=== PATIENT | male | born 2000 | race Caucasian/White ===

== ENCOUNTER 2020-11-01 18:48 | Emergency (ER) | payer SELFPAY ==
--- NOTE | 2020-11-01 18:50 | XR_ITS ---
WS: [id number] Exam: XR hand RT min 3V* [id number] Date/Time of Exam: 11/01/2020 6:57 PM Reason For Exam: pain There is an impacted fracture of the distal fifth metacarpal with volar rotation of the metacarpal he ad. No other fractures. No dislocation. Soft tissue swelling at the fracture site. XR/XR hand RT min 3V* [id number] IMPRESSION: 1. Fracture of the distal fifth metacarpal with volar rotation of the metacarpa l head.
[2020-11-01 18:58] VITALS: BP 104/68; PULSE 102; RESP 16; TEMP 36.8; O2SAT 96; BMI 19.2
[2020-11-01 19:04] VITALS: BP 124/73; PULSE 101; RESP 16; O2SAT 97
--- NOTE | 2020-11-01 19:17 | ED_ITS ---
HPI - Extremity Problem General: Chief complaint: Extremity Injury, Upper Stated complaint: Rt hand pain Time Seen by Provider: 11/01/20 19:07 History of Present Illness: HPI Narrative: Patient states he had his right hand in a car door couple days ago it hurts. Complaint: extremity pain Onset (ago): day(s) Pain Consistency: constant Location: right and upper extremity Quality: aching Radiation: none Relieving factors: immobilization Exacerbating factors: range of motion Associated symptoms: Reports no associated symptoms; Deny fever(s) Review of Systems Const: Denies: fever(s) or chills Musc: Reports: extremity pain (Right hand) and joint pain Psych: Denies: anxiety or depression Physical Exam Const: COMMON NORMALS: no acute distress Extremity: RIGHT UPPER EXTREMITY: Yes hand & digits (Swelling tenderness to the right distal aspect fifth metacarpal. Has bruis) Psych: COMMON NORMALS: mental status grossly normal Course Vital Signs: Vital signs: Vital Signs Temperature 98.3 F 11/01/20 18:58 Pulse Rate 101 H 11/01/20 19:04 Respiratory Rate 16 11/01/20 19:04 Blood Pressure 124/73 11/01/20 19:04 Pulse Oximetry 97 11/01/20 19:04 Discharge Plan Discharge Patient Disposition: Home Clinical Impression: Finger fracture, right Qualifiers: Encounter type: initial encounter Finger: little finger Fracture type: closed Phalanx: distal Fracture alignment: displaced Qualified Code(s): S62.636A - Displaced fracture of distal phalanx of right little finger, initial encounter for closed fracture Condition: Stable Prescriptions: New tramadol 50 mg tablet 50 mg PO TID PRN (Reason: pain) Qty: 10 RF: 0 Discharge Orders: Discharge ED (Routine); Ordered 11/01/20 Ordered By: Rashi Rice Discharge Diet: Usual diet Discharge Activity: Increase activity as tolerated Patient Instructions: Boxer Fracture (ED) Activity Restrictions/Additional Instructions: Follow-up with medical provider as directed. Take medications as prescribed. Return to the ER or your medical provider if condition worsens. Please read and understand discharge instructions. If any questions ask please. . Hospital contact you with appointment for orthopedic clinic. Coding Level of Care Code ED Heading Up Machine Operator for Lexi Bowers
--- NOTE | 2020-11-02 09:30 | DCPLANNER ---
manager animation had message to schedule a follow up appointment for patient with ortho. manager animation called the ortho clinic, spoke with Kristy, gave clinic patients information. manager animation was told that patients information would be printed and reviewed. Clinic will call patient with appointment information.
--- NOTE | 2020-11-14 10:23 | DCPLANNER ---
manager subway called ortho to confirm that a follow up appointment had been scheduled for patient. manager subway spoke with Ro, was told that patient went somewhere else to be seen.
== END 2020-11-01 19:45 | disposition home or self-care (01) ==
PROVIDERS: Emergency Provider Nurse Practitioner Family
DX: S62.636A Displaced fracture of distal phalanx of right little finger, initial encounter for closed fracture (principal); W23.0XXA Caught, crushed, jammed, or pinched between moving objects, initial encounter
CPT/HCPCS: 12345; 29125; 73130; 99281; 99283

== ENCOUNTER 2025-08-03 21:14 | Emergency (ER) | payer SELFPAY ==
[2025-08-03] VITALS (8 sets, daily range): BP systolic 109–137; BP diastolic 66–82; PULSE 44–63; RESP 14–18; TEMP 36.3; O2SAT 100
[2025-08-03] MEDS: metoclopramide 5 mg/mL SDV 2 mL 10 MG IVP (21:59)
[2025-08-03 22:13] LABS: Hematocrit 42.8 % (37-53); Hemoglobin 14.10 g/dL (11.27-16.99); Mean Corpuscular HGB Conc 32.9 g/dL (30-55); Mean Corpuscular Hemoglobin 27.9 pg (27-33); Mean Corpuscular Volume 84.8 fl (82-101); Nucleated Red Blood Cells % 0 %; Platelet Count 210 10^3/cmm (157-399); Red Blood Count 5.05 10^6/uL (3.85-5.65); White Blood Count 6.78 10^3/uL (3.29-11.43)
--- NOTE | 2025-08-03 22:19 | ED_ITS ---
HPI - Nausea/Vomiting/Diarrhea 2 General: Chief complaint: Nausea/Vomiting/Diarrhea Stated complaint: had a tooth pulled, has dry heaves, lot of pain Time Seen by Provider: 08/03/25 21:24 Source: patient Mode of arrival: ambulatory Limitations: no limitations History of Present Illness: Patient is a 25-year-old male who presents emergency department with nausea vomiting beginning today. Yesterday he had right lower molar pulled, was started on amoxicillin. States that he was feeling okay yesterday but this morning woke up and has had bodyaches associated with the nausea vomiting. Notes that he cannot keep anything down. Generalized abdominal pain. States that the pain in his mouth has improved, though he has still had mild bleeding at the area of tooth extraction. No fevers, cough, shortness of breath, or chest pain. No reports of sick contacts. MD elicited complaint: nausea and vomiting Onset (ago): day(s) Associated nausea: Yes Associated abdominal pain: Yes Location of pain: Diffuse Context: other (Tooth extraction yesterday, began amoxicillin) Associated symtoms: Reports fatigue, malaise and nausea; Denies change in vision, chest pain, dysuria, headache(s) or palpitations Related Data Previous Rx's ?Medication ?Instructions ?Recorded tramadol 50 mg tablet 50 mg PO TID PRN pain #10 ta bs 11/01/20 clindamycin HCl 300 mg capsule 300 mg PO BID 7 days #1 4 caps 08/03/25 ondansetron 4 mg disintegrating 4 mg PO TID PRN nausea and 08/03/25 tablet vomiting #30 tabs Allergies Allergy/AdvReac Type Severity Reaction Status Date / Time No Known Allergies Allergy Verified 08/03/25 21:25 Review of Systems 2 General: Reports: 10 or more systems reviewed and unremarkable except in HPI and below Const: Reports: fever(s), body aches, fatigue and malaise; Denies: chills Eyes: Denies: change in vision ENMT: Denies: throat pain, ear or mastoid pain or nasal discharge Card: Denies: chest pain, palpitations, swelling of feet/ankles or lightheadedness Resp: Denies: dyspnea, productive cough or wheezing GI: Reports: abdominal pain, nausea and vomiting; Denies: diarrhea : Denies: flank pain, difficulty urinating, dysuria or urinary frequency Musc: Denies: neck pain, back pain or joint pain Skin/Breast: Denies: rash Neuro: Denies: headache(s), numbness in extremities or weakness in extremities Physical Exam 2 Const: COMMON NORMALS: patient oriented x3 GENERAL APPEARANCE: cooperative and well developed ORIENTATION/CONSCIOUSNESS: Yes awake, Yes oriented to person, Yes oriented to place and Yes oriented to time OTHER: Tired appearing HENMT: COMMON NORMALS: normocephalic, atraumatic and hearing grossly normal bilaterally HEAD & SCALP: normocephalic and atraumatic OTHER: Tooth extraction evident right lower molar, mild active bleeding. Eye: COMMON NORMALS: Equal, round and reactive pupils present, EOMs intact bilaterally and conjunctivae normal CONJUNCTIVA: Yes conjunctivae normal P UPIL: Yes Equal, round and reactive pupils present Neck/C-Spine: COMMON NORMALS: full ROM, supple and no JVD Resp: COMMON NORMALS: normal respiratory effort, No retractions, No use of accessory muscles and clear to auscultation bilaterally AUSCULTATION: clear to auscultation bilaterally Cardio: COMMON NORMALS: no JVD, regular rate, regular rhythm, No clicks present (Cardio), No murmurs present (Cardio) and No rub (Cardio) RATE: r egular rate RHYTHM: regular rhythm GI: COMMON NORMALS: Normal to inspection, nondistended, normoactive bowel sounds present and Soft to palpation AUSCULTATION: Yes normoactive bowel sounds PALPATION: Yes Soft to palpation and Yes Tenderness to palpation present (GI) (diffuse) RECTAL EXAM: Yes deferred Extremity: COMMON NORMALS: normal to inspection, full ROM and capillary refill normal Neuro: COMMON NORMALS: patient oriented x3, moves all extremities, no focal motor deficits and no sensory deficits noted SENSORIUM/ORIENTATION: Yes oriented to person, Yes oriented to place and Yes oriented to time Psych: COMMON NORMALS: mental status grossly normal and Normal thought process present THOUGHT PROCESS: Normal thought process present Skin: COMMON NORMALS: no rashes or lesions noted GENERAL SKIN EXAM: no rashes or lesions noted Course 2 Vital Signs: Vital signs: Vital Signs Temperature 97.4 F L 08/03/25 21:21 Pulse Rate 61 08/03/25 23:30 Respiratory Rate 18 08/03/25 23:30 Blood Pressure 109/66 08/03/25 23:30 Pulse Oximetry 100 08/03/25 23:30 Oxygen Delivery Me thod Room Air 08/03/25 23:30 MDM - Nausea/Vomiting/Diarrhea Medical Decision Making Patient presenting with nausea vomiting throughout the day and inability to keep down liquids or solids. Had tooth extraction yesterday and was started on amoxicillin. Diffuse body aches as well, suspect element of dehydration so IV placed and he is started on fluids. Heart rate has been low, dropping as low as 45 but he is asymptomatic and states that he believes his heart rate always runs low. No dizziness or lightheadedness or palpitations with standing or ambulating. Originally noted to be unable to keep down water, but p.o. challenge after being given IV Reglan and Benadryl he is able to keep down fluids. No leukocytosis on CBC, elevation in gap with his metabolic panel I suspect this is starvation ketosis or mild lactic acidosis from dehydration. His electrolytes were normal there was no derangement here. Otherwise, overall vitals have been stable here in the ED and I did offer him admission for intractable nausea vomiting and monitoring in the hospital but he states he feels much better and able to treat at home. As mentioned, he did pass a p.o. challenge at bedside and states that his pain is much better. He does note that there has been mild bleeding still to the tooth, so TXA gauze will be placed prior to discharge and he is instructed to follow-up with dentist/primary care. He will also be switched off of amoxicillin and started on clindamycin. Return precautions are given, of which the patient verbalizes understanding. Lab Data 08/03/25 22:06 08/03/25 22:06 Laboratory Results WBC 6.78 10^3/uL (3.29-11.43) 08/03/25 22:06 RBC 5.05 10^6/uL (3.85-5.65) 08/03/25 22:06 Hgb 14.10 g/dL (11.27-16.99) 08/03/25 22:06 Hct 42.8 % (37-53) 08/03/25 22:06 MCV 84.8 fl (82-101) 08/03/25 22:06 MCH 27.9 pg (27-33) 08/03/25 22: MCHC 32.9 g/dL (30-55) 08/03/25 22:06 RDW 11.9 % (12.1-15.1) L 08/03/25 22:06 Plt Count 210 10^3/cmm (157-399) 08/03/25 22:06 MPV 10.8 fL (7.4-10.4) H 08/03/25 22:06 Neut % (Auto) 84.7 % 08/03/25 22:06 Lymph % (Auto) 11.2 % 08/03/25 22:06 [place] % (Auto) 2.9 % 08/03/25 22:06 Eos % (Auto) 0.3 % 08/03/25 22:06 Baso % (Auto) 0.6 % 08/03/25 22:06 Neut # (Auto) 5.74 10^3/uL (1.8-7.7) 08/03/25 22:06 Lymph # (Auto) 0.8 10^3/uL (0.8-4.8) 08/03/25 22:06 [place] # (Auto) 0.2 10^3/uL (0.2-0.9) 08/03/25 22:06 Eos # (Auto) 0.0 10^3/uL (0.0-0.8) 08/03/25 22:06 Baso # (Auto) 0.0 10^3/uL (0.0-0.1) 08/03/25 22:06 Nucleated RBC % (auto) 0 % 08/03/25 22:06 Nucleated RBCs # 0.0 /100WBC 08/03/25 22:06 Sodium 139 mmol/L (136-145) 08/03/25 22:06 Potassium 4.2 mmol/L (3.5-5.1) 08/03/25 22:06 Chloride 100 mmol/L (98-107) 08/03/25 22:06 Carbon Dioxide 18 mmol/L (22-29) L 08/03/25 22:06 Anion Gap 25.2 (5-19) H 08/03/25 22:06 BUN 15 mg/dL (6-20) 08/03/25 22:06 Creatinine 0.7 mg/dL (0.7-1.2) 08/03/25 22:06 GFR Calculation 136.3 mL/min (90-130) H 08/03/25 22:06 Glucose 113 mg/dL (65-115) 08/03/25 22:06 Calculated Osmolality 290 mOsm/kg (285-295) 08/03/25 22:06 Calcium 9.7 mg/dL (8.5-10.5) 08/03/25 22:06 Magnesium 2.0 mg/dL (1.7-2.3) 08/03/25 22:06 Total Bilirubin 0.6 mg/dL (0.15-1.2) 08/03/25 22:06 AST 18 U/L (0-40) 08/03/25 22:06 ALT 15 U/L (0-41) 08/03/25 22:06 Alkaline Phosphatase 70 U/L (40-130) 08/03/25 22:06 Total Protein 8.2 g/dL (6.6-8.7) 08/03/25 22:06 Albumin 4.9 g/dL (3.5-5.2) 08/03/25 22:06 Globulin 3.3 g/dL (1.3-4.6) 08/03/25 22:06 Influenza A (PCR) Negative (Negative) 08/03/25 22:13 Influenza Type B (PCR) Negative (Negative) 08/03/25 22:13 RSV (PCR) Negative (Negative) 08/03/25 22:13 SARS-CoV-2 (PCR) Negative (Negative) 08/03/25 22:13 No radiology studies performed this visit Discharge Plan Discharge Patient Disposition: Home Clinical Impression: Drug-induced nausea and vomiting, Dehydration Condition: Stable Prescriptions: New clindamycin HCl 300 mg capsule 300 mg PO BID 7 Days Qty: 14 0RF ondansetron 4 mg tablet,disintegrating 4 mg PO TID PRN (Reason: nausea and vomiting) Qty: 30 0RF No Action tramadol 50 mg tablet 50 mg PO TID PRN (Reason: pain) Qty: 10 0RF Discharge Orders: Discharge ED (Routine); Ordered 08/03/25 Ordered By: Aamir Raygoza Patient Instructions: Patient Portal & [facility] Instructions Activity Restrictions/Additional Instructions: Dental Infection Discharge Diagnosis: Nausea and vomiting, likely secondary to allergic reaction to amoxicillin after dental extraction. Now stable and tolerating oral intake. Antibiotic Therapy: - Discontinue amoxicillin immediately. - Start clindamycin 300 mg orally twice daily for 7 days. (Note: ADA guideline recommends 300 mg four times daily, but twice daily is commonly used in practice for mild-moderate infections; adjust per clinical judgment and local resistance patterns). - Take clindamycin with a full glass of water to reduce risk of esophageal irritation. - Complete the full course unless instructed otherwise. If symptoms resolve before 7 days, discuss with provider whether to discontinue 24 hours after symptom resolution, as per ADA guidance. Adverse Event Monitoring: - Clindamycin is associated with a higher risk of Clostridioides difficile infection (CDI), which can be severe or fatal. Instruct patient to monitor for: - New onset fever - Abdominal pain or cramping - >= loose or watery stools per day - Blood or pus in stool - If any of these occur, discontinue clindamycin and seek immediate medical attention. - Clindamycin resistance is increasing, especially among Streptococcus anginosus group; monitor for lack of clinical improvement. Allergy and Adverse Drug Reaction Precautions: - If rash, hives, swelling of lips/tongue, difficulty breathing, or severe itching develop, stop clindamycin and seek emergency care. - Immediate hypersensitivity reactions to clindamycin are rare but possible. Symptomatic Management: - Ondansetron 4 mg orally disintegrating tablet as needed for nausea (maximum 8 mg per dose, up to 3 doses per day). - Maintain hydration with clear fluids as tolerated. - Advance diet as tolerated. Pain Management: - Use NSAIDs (e.g., ibuprofen 400?600 mg every 6 hours as needed) and/or acetaminophen (1000 mg every 6 hours as needed) for dental pain, unless contraindicated. Return Precautions: - Return to the emergency department or contact provider immediately for: - Persistent vomiting or inability to tolerate oral intake - Signs of severe allergic reaction (see above) - Signs of C. difficile infection (see above) - Worsening dental pain, swelling, pus formation, or fever - Difficulty breathing, chest pain, or confusion - No improvement in symptoms after 48?72 hours of antibiotics Follow-Up: - Arrange dental follow-up within 1?2 days for definitive management if not already completed. - Re-evaluate within 3 days to assess response to therapy. Work Note: - Patient may return to work when symptoms have resolved and oral intake is tolerated. Work note provided. Additional Instructions: - Avoid alcohol while taking clindamycin and ondansetron. - Take all medications as prescribed. - If any new or concerning symptoms develop, seek medical attention promptly. Patient Education: - Penicillin allergy is commonly reported but often not confirmed; future allergy testing may be considered. - Clindamycin is used as an alternative due to allergy, but carries higher risk of adverse events and resistance; strict monitoring is essential. Stand Alone Forms: Work/School Release Print Language: Citizen Of [place] Coding Level of Care Code ED Certified Nutritionist for Lexi Bowers
--- NOTE | 2025-08-03 22:34 | ECG_ITS ---
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 Measurements Intervals [place] Rate: 51 P: 78 GA: 146 QRS: 76 QRSD: 94 T: 71 QT: 494 QTc: 456 Interpretive Statements SINUS BRADYCARDIA PROLONGED QT INTERVAL No previous ECG available for comparison Electronically Signed On 08-04-2025 08:51:03 CDT by Sushant Baptiste M.D. [email or web address]
[2025-08-03 22:35] LABS: Alanine Aminotransferase 15 U/L (0-41); Albumin Level 4.9 g/dL (3.5-5.2); Alkaline Phosphatase 70 U/L (40-130); Anion Gap 25.2 (5-19); Aspartate Amino Transferase 18 U/L (0-40); Blood Urea Nitrogen 15 mg/dL (6-20); Calcium 9.7 mg/dL (8.5-10.5); Carbon Dioxide 18 mmol/L (22-29); Chloride 100 mmol/L (98-107); Creatinine Clr Calc Pharmacy 157.5091; Globulin 3.3 g/dL (1.3-4.6); Glucose 113 mg/dL (65-115); Osmolality Calculated 290 mOsm/kg (285-295); Potassium 4.2 mmol/L (3.5-5.1); Sodium 139 mmol/L (136-145); Total Protein 8.2 g/dL (6.6-8.7)
[2025-08-03] MEDS: diphenhydrAMINE 50 mg/mL SDV 1mL IVP (22:57)
[2025-08-03 22:58] LABS: Respiratory Syncytial Virus Ce NEGATIVE (Negative); SARS-CoV-2 PCR NEGATIVE (Negative)
[2025-08-03 23:07] LABS: Magnesium 2.0 mg/dL (1.7-2.3)
[2025-08-04] MEDS: ondansetron 2 mg/ML SDV 2 mL 4 MG IVP
[2025-08-04] MEDS: tranexamic acid 1,000 mg/10mL SDV 1000 MG IRRIGATION (00:02)
[2025-08-04 00:08] VITALS: BP 109/66; PULSE 64; O2SAT 82
== END 2025-08-04 00:09 | disposition home or self-care (01) ==
PROVIDERS: Emergency Provider Physician Assistant
DX: R11.2 Nausea with vomiting, unspecified (principal); E86.0 Dehydration; Z11.52 Encounter for screening for COVID-19; Z98.890 Other specified postprocedural states
CPT/HCPCS: 80053; 83735; 85025; 87637; 93005; 96361; 96374; 96375; 99284; J1200; J1885; J2405; J2765; J7030; J9999